=== PATIENT | female | born 1990 | race Caucasian/White ===

== ENCOUNTER 2017-12-17 16:01 | Emergency (ER) | payer OTHER ==
[2017-12-17] MEDS ORDERED: LET GEL TOPICAL 1 EA SYR TP ONE ×2 (16:16→16:18)
[2017-12-17] MEDS ORDERED: TDAP ADULT 0.5 ML INJ (BOOSTRIX) IM ONE (16:38)
--- NOTE | 2017-12-17 17:40 | EDPHY ---
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 She complains of pain and bleeding. This happened approximately 0.5 hr prior to arrival. She wrapped the wound and came straight in. She denies other pain or injury. Last tetanus shot was 8 or 10 years ago. REVIEW OF SYSTEMS: As in HPI, and all other systems reviewed and are negative Smoking Status: Current every day smoker Physical Exam: General Appearance: Alert and no distress. Head: Normocephalic, atraumatic Eyes: Pupils equal and round no injection. Extraocular movements are intact. Musculoskeletal: Neck is supple and nontender. Extremities: Left small finger with 3 cm tissue defect on the ulnar side through fat but joint capsule intact. Distal sensation is intact. Distal cap refills less than 2 sec. Patient can flex and extend against resistance and AB and ADduct against resistance. Skin: No rashes or lesions except as described above. Constitutional: Initial Vital Signs Temperature (C) 37.2 C 12/17/17 16:12 Heart Rate 82 12/17/17 16:12 Respiratory Rate 16 12/17/17 16:12 Blood Pressure 150/88 H 12/17/17 16:12 O2 Sat (%) 99 12/17/17 16:12 O2 Delivery Mode Room Air Allergies/Adverse Reactions: No Known Allergies Allergy (Verified 12/17/17 16:12) Home Medications: Medication Instructions Recorded Nuvaring 12/17/17 MDM/Departure - MDM Procedures: Ring block: Left small finger was anesthetized with 0.25% Marcaine in a ring block without complications. Medications Given: Discontinued Medications Diphtheria/Tetanus/Acell Pertussis (Boostrix) 0.5 ml IM .ONCE ONE Stop: 12/17/17 16:39 Last Admin: 12/17/17 16:51 Dose: 0.5 ml Tetracaine/Epinephrine/Lidocaine (Let Gel Topical) 1 ea TP EDNOW ONE Stop: 12/17/17 16:19 Last Admin: 12/17/17 16:18 Dose: 1 ea ED Course/Re-evaluation: 27-year-old woman presents with tissue defect laceration on her left small finger. Because she sliced the flash there is a large tissue defect and nothing suturable. We discussed how the wound will have to heal by secondary intention. I performed a ring block to anesthetize the finger. The wound was irrigated and dressed with Surgicel and gauze. She is referred to workman's Comp for follow-up and wound check. We discussed the need to keep the wound covered with antibiotic or bland ointment such as Aquaphor for best healing. We discussed signs and symptoms of infection. Patient understands and is agreeable to this plan. - Depart Disposition: Home, Routine, Self-Care Clinical Impression: Laceration Condition: Good Instructions: Laceration (ED) Additional Instructions: You were seen by Dr. Nichole Wilder today. Keep dressing on her wound until you are seen by workmen's comp on Tuesday. Please get seen on Tuesday by your workmen's compensation physician that your employer direct you to. We were unable to close the wound because of the tissue defect. This will heal by secondary intention slowly over the next few weeks. Keep the wound covered with ointment such as Aquaphor. Watch for signs and symptoms of infection including but limited to pus, increased swelling or redness, increased pain or fever. Return for any worsening or new concerns. Stand Alone Forms: Work Comp Follow Up Referrals: NONE *PRIMARY CARE P,. [Primary Care Provider] - As per Instructions
[2017-12-17 17:56] VITALS: BP 124/88
== END 2017-12-17 17:53 | disposition home or self-care (01) ==
LOC: CED 16:01
PROC: 3E0T3BZ Introduction of Anesthetic Agent into Peripheral Nerves and Plexi, Percutaneous Approach (ICD-10-PCS; principal; 2017-12-17)
DX: S61.217A Laceration without foreign body of left little finger without damage to nail, initial encounter (principal); Z23 Encounter for immunization; W26.0XXA Contact with knife, initial encounter; Y93.G3 Activity, cooking and baking; Y92.9 Unspecified place or not applicable; Y99.0 Civilian activity done for income or pay